=== PATIENT | female | born 1940 | race African-American/Black ===

== ENCOUNTER 2017-01-15 16:29 | Emergency (ER) | payer MEDICARE, MEDICAID ==
[~2017-01-15] VITALS: Ht 165.1 cm; Wt 100.0 kg
[2017-01-15] MEDS ORDERED: ONDANSETRON 4MG ODT PO ONE (23:00)
[2017-01-15] MEDS ORDERED: KETOROLAC 30MG/ML VIAL IM ONE (23:00)
[2017-01-16 01:25] VITALS: BP 160/67
== END 2017-01-16 01:31 | disposition home or self-care (01) ==
LOC: ER 17:17
DX: M70.61 Trochanteric bursitis, right hip (principal); I10 Essential (primary) hypertension; E78.00 Pure hypercholesterolemia, unspecified; E11.9 Type 2 diabetes mellitus without complications; Z85.3 Personal history of malignant neoplasm of breast
CPT/HCPCS: 73521; 96372; 99284; J1885; Q0162

== ENCOUNTER 2018-06-23 21:38 | Emergency (ER) | payer MEDICARE, MEDICAID ==
[~2018-06-23] VITALS: Ht 165.1 cm; Wt 108.4 kg
[2018-06-23 23:49] LABS: BASOPHILS % 0.5 % (0.0-2.0); EOSINOPHILS % 0.7 % (0.0-5.0); HEMATOCRIT. 37.4 % (36.0-48.0); HEMOGLOBIN. 12.5 g/dL (12.0-16.0); LYMPHOCYTES % 22.9 % (20.0-50.0); MEAN CORPUSCULAR HEMOGLOBIN 29.7 pg (28.0-32.0); MONOCYTES % 13.3 % (2.0-8.0); NEUTROPHILS % 62.6 % (40.0-76.0); PLATELET 208 x1000/uL (130-400); RED CELL DISTRIBUTION WIDTH 16.5 % (11.6-14.6)
[2018-06-23 23:51] LABS: CHLORIDE 110 mEq/L (98-107)
[2018-06-24 00:23] LABS: CLARITY URINE CLEAR (CLEAR); COLOR URINE YELLOW (YELLOW); KETONES URINE NEGATIVE (NEGATIVE); LEUKOCYTE ESTERASE URINE NEGATIVE (NEGATIVE); NITRITE URINE NEGATIVE (NEGATIVE); OCCULT BLOOD URINE NEGATIVE (NEGATIVE); PH URINE 5.5 (4.5-8.0); PROTEIN URINE NEGATIVE (NEGATIVE); SPECIFIC GRAVITY URINE 1.022 (1.005-1.030)
[2018-06-24 01:59] VITALS: BP 145/55
== END 2018-06-24 02:03 | disposition home or self-care (01) ==
LOC: ER 21:38
DX: R53.1 Weakness (principal); E11.9 Type 2 diabetes mellitus without complications; I10 Essential (primary) hypertension; Z90.10 Acquired absence of unspecified breast and nipple; Z91.013 Allergy to seafood; Z88.6 Allergy status to analgesic agent
CPT/HCPCS: 36415; 71045; 83880; 84484; 93005; 99284